=== PATIENT | male | born 1985 | race African-American/Black ===

== ENCOUNTER 2022-11-18 13:14 | Emergency (ER) | payer OTHER, SELFPAY ==
[2022-11-18] MEDS ORDERED: HYDROcodone/Acetaminophen 5/325 mg Tablet ONE (14:08)
== END 2022-11-18 15:06 | disposition home or self-care (01) ==
LOC: CSHERS 13:14
DX: S92.354A Nondisplaced fracture of fifth metatarsal bone, right foot, initial encounter for closed fracture (principal); F17.210 Nicotine dependence, cigarettes, uncomplicated; X50.9XXA Other and unspecified overexertion or strenuous movements or postures, initial encounter; Y93.51 Activity, roller skating (inline) and skateboarding

== ENCOUNTER 2023-07-20 17:14 | Emergency (ER) | payer OTHER, SELFPAY ==
[2023-07-20] MEDS ORDERED: Digoxin 0.5 MG/2 ML AMP ONE (17:43)
[2023-07-20] MEDS ORDERED: dilTIAZem 25 MG/5 ML VIAL ONE (17:43)
[2023-07-20 17:47] LABS: #Eosinphils 0.1 10x3/uL (0.0-0.5); #Monocytes 0.7 10x3/uL (0.0-1.1); #Neutrophils 7.3 10x3/uL (1.5-8.4); %Basophils 0.2 % (0.0-2.0); %Eosinophils 0.9 % (0.0-6.0); %Lymphocytes 5.1 % (18.0-47.0); %Monocytes 8.4 % (0.0-10.0); %Neutrophils 85.2 % (40.0-75.0); Hematocrit 41.3 % (38.8-50.0); Hemoglobin 14.3 g/dL (13.5-17.5); Mean Corpuscular HGB CONC 34.6 g/dL (32.0-36.0); Mean Corpuscular Hemoglobin 31.5 pg (27.0-33.0); Mean Platelet Volume 8.8 fl (7.4-10.4); Platelet Count 242 10x3/uL (150-450); RBC Distribution Width 12.1 % (11.5-14.5); Red Blood Cell (RBC) Count 4.54 10x6/uL (4.32-5.72); White Blood Cell (WBC) Count 8.6 10x3/uL (3.5-10.5)
[2023-07-20 18:04] LABS: ALT (SGPT) 13 U/L (8-55); AST (SGOT) 17 U/L (5-34); Albumin 4.4 g/dL (3.5-5.0); Alkaline Phosphatase 76 U/L (40-110); Anion Gap 16 mmol/L (10-20); BUN (Urea Nitrogen) 9 mg/dL (8.9-20.6); Bilirubin, Total 0.6 mg/dL (0.2-1.2); Calc. Creatinine Clearance 0 mL/min (70-130); Calcium 9.3 mg/dL (7.8-10.44); Carbon Dioxide 19 mmol/L (22-29); Chloride 103 mmol/L (98-107); Estimated GFR 88; Glucose 110 mg/dL (70-105); Potassium 3.7 mmol/L (3.5-5.1); Protein, Total 7.4 g/dL (6.0-8.3); Sodium 134 mmol/L (136-145)
[2023-07-20 18:06] LABS: Troponin I Less than 0.010 ng/mL (< 0.028)
== END 2023-07-20 18:00 | disposition home or self-care (01) ==
LOC: CSHERS 17:14
DX: I48.92 Unspecified atrial flutter (principal); F17.210 Nicotine dependence, cigarettes, uncomplicated
CPT/HCPCS: 80053; 84484; 85025; 93005; 96374; 96375; J1160

== ENCOUNTER 2024-09-27 23:11 | Emergency (ER) | payer SELFPAY ==
[2024-09-27 23:50] LABS: Bilirubin Neg (Negative); Blood, Urine 50 (Negative); Clarity Cloudy (Clear); Glucose, Urine (Dipstick) Normal (Negative); Ketone, Urine Negative (Negative); Leukocyte 500 (Negative); Nitrite Negative (Negative); Protein, Urine (Dipstick) 30 mg/dl (Neg-Trace); Specific Gravity, Urine 1.025 (1.005-1.030)
[2024-09-27] MEDS ORDERED: Sterile Water 10 ML ONE (23:53)
[2024-09-27] MEDS ORDERED: cefTRIAXone (ROCEPHIN) 500 MG VIAL ONE (23:53)
[2024-09-28 00:33] LABS: CAUTI Indications for Culture Dysuria,urgency,freq; WBC/HPF Greater Than 50 HPF (0-3)
[2024-09-28 00:34] LABS: Bacteria/HPF 3+ HPF (None Seen); Squamous Epithelial 0-3 HPF (0-3)
[2024-09-28 00:36] LABS: Urine Culture Reflex Yes Yes
== END 2024-09-27 23:59 | disposition home or self-care (01) ==
LOC: CSHERS 23:11
DX: N34.1 Nonspecific urethritis (principal); N45.1 Epididymitis; F17.210 Nicotine dependence, cigarettes, uncomplicated
CPT/HCPCS: 81001; 87086; 96372; 99284; J0696